=== PATIENT | female | born 1970 | race Caucasian/White ===

== ENCOUNTER → 2017-02-09 | Outpatient (CLI) | payer OTHER | LOC: MC.RAD 11:20 | DX: Z12.31 Encounter for screening mammogram for malignant neoplasm of breast (principal); Z80.3 Family history of malignant neoplasm of breast ==

== ENCOUNTER → 2021-01-25 | Outpatient (CLI) | payer SELFPAY | LOC: MC.RAD | DX: Z12.31 Encounter for screening mammogram for malignant neoplasm of breast (principal) ==

== ENCOUNTER → 2022-08-13 | Outpatient (CLI) | payer BC | LOC: COL.RAD 06:51 | DX: R10.11 Right upper quadrant pain (principal) | CPT/HCPCS: A9537; J2805 ==

== ENCOUNTER → 2023-12-15 | Outpatient (CLI) | payer BC ==
[~2023-12-15] VITALS: Ht 172.7 cm; Wt 105.0 kg
[~2023-12-15] MED LIST: CALCIUM-500 5001 CTB PO; IMMUNOGLOBULIN PO; MAGNESIUM CITR100 MG PO; MAGNESIUM GLYC100 MG PO; MASON NATURAL2000 IU PO; NORTREL 35 MCG-1 TAB PO; OMEGA-3 1000 MG1 CAP PO; PHARMASSURE CHE30 MG PO; PRILOSEC 20MG20 MG PO; PROBIOTIC BLEN1 EACH PO; QUESTRAN4 GM/9 GM PO; VITAMIN B COMPL1 SGL PO; VITAMIN E1000 U/CAP PO
[2023-12-15 09:50] VITALS: BP 160/98; PULSE 62; TEMP 97.8
--- NOTE | 2023-12-15 10:17 | NUR ---
No biopsy necessary. Pt dressed and out to car ambulatory. Procedure canceled.
== END ==
LOC: COL.RAD 09:29
DX: R59.0 Localized enlarged lymph nodes (principal)

== ENCOUNTER → 2024-05-23 | Outpatient (CLI) | payer BC ==
[2006-01-28 07:49] VITALS: PULSE 93; TEMP 98.7
== END ==
LOC: MC.RAD 09:18
DX: Z12.31 Encounter for screening mammogram for malignant neoplasm of breast (principal)